=== PATIENT | female | born 1970 ===

== ENCOUNTER 2019-09-27 09:38 | Outpatient (CLI) | payer OTHER | END 2019-09-27 10:27 | disposition home or self-care (01) | LOC: RAD 09:38 | PROVIDERS: ATTEND Orthopaedic Surgery | DX: M25.571 Pain in right ankle and joints of right foot (principal); M25.572 Pain in left ankle and joints of left foot; M25.561 Pain in right knee; M25.652 Stiffness of left hip, not elsewhere classified ==

== ENCOUNTER 2024-01-04 12:59 | Outpatient (CLI) | payer OTHER | END 2024-01-04 13:12 | disposition home or self-care (01) | LOC: RAD 12:59 | PROVIDERS: ATTEND Orthopaedic Surgery | DX: M25.561 Pain in right knee (principal); M25.562 Pain in left knee ==